=== PATIENT | male | born 1950 | race Caucasian/White ===

== ENCOUNTER 2019-04-26 13:02 | Emergency (ER) | payer MEDICARE, BC ==
--- NOTE | 2019-04-26 13:56 | EDM.PDOC ---
ED HPI GENERAL MEDICAL PROBLEM - General Chief Complaint: Bite:Animal, Insect Stated Complaint: TICK BITE Time Seen by Provider: 04/26/19 14:12 Source of Information: Reports: Patient History Limitations: Reports: No Limitations - History of Present Illness INITIAL COMMENTS - FREE TEXT/NARRATIVE: 68 years old male patient presented to the ER with a chief complaint of having a would tick stuck to his abdominal wall. He think is has been there for almost 2 or 3 weeks. He thought it's a growing mole and today he realized that it moves and his told him that it is a would tick. No other complaint. Denies any headache or visual changes. Denies any fever. Denies any chest pain shortness breath. Denies any cough. Denies any abdominal pain diarrhea or constipation. Urinary symptom. - Related Data Allergies Allergy/AdvReac Type Severity Reaction Status Date / Time honey Allergy Swelling Verified 04/26/19 13:48 Home Meds: Home Meds Albuterol [Proventil HFA] 2 puff INH Q4H PRN 04/26/19 [History] Diltiazem HCl [Dilt-Xr] 240 mg PO DAILY 04/26/19 [History] Fluticasone Propionate [Flonase] 2 spray TATYANA DAILY 04/26/19 [History] Fluticasone/Salmeterol [Advair 250-50 Diskus] 1 each IH DAILY 04/26/19 [History] Losartan Potassium 50 mg PO DAILY 04/26/19 [History] atorvaSTATin [Lipitor] 20 mg PO BEDTIME 04/26/19 [History] hydroCHLOROthiazide [Hydrochlorothiazide] 12.5 mg PO DAILY 04/26/19 [History] traMADol HCl [Tramadol HCl] 50 mg PO TID PRN 04/26/19 [History] Social & Family History - Tobacco Use Smoking Status *Q: Never Smoker - Caffeine Use Caffeine Use: Reports: Coffee - Alcohol Use Days Per Week of Alcohol Use: 7 Number of Drinks Per Day: 1 Total Drinks Per Week: 7 - Recreational Drug Use Recreational Drug Use: No ED ROS GENERAL - Review of Systems Review Of Systems: ROS reveals no pertinent complaints other than HPI. ED EXAM, ANIMAL BITE - Physical Exam Exam: See Below Exam Limited By: No Limitations General Appearance: Alert, No Apparent Distress Ears: Normal External Exam Head: Atraumatic, Normocephalic. No: Facial Swelling Neck: Normal Inspection, Supple. No: Lymphadenopathy (R), Lymphadenopathy (L) Respiratory/Chest: No Respiratory Distress, Lungs Clear, Normal Breath Sounds, Chest Non-Tender Cardiovascular: Normal Peripheral Pulses, Regular Rate, Rhythm, No Edema. No: Bradycardia, Tachycardia GI/Abdominal: Normal Bowel Sounds, Soft, Non-Tender, No Organomegaly, No Distention, No Mass, Other (wood tic stuck to his anterior abdominal wall) Extremities: Normal Inspection Neurological: Alert, Oriented, CN II-XII Intact, Normal Cognition, Normal Gait, No Motor/Sensory Deficits Course - Vital Signs Last Recorded V/S: Last Vital Signs Temp 35.6 C 04/26/19 13:52 Pulse 73 04/26/19 13:52 Resp 16 04/26/19 13:52 BP 133/76 04/26/19 13:52 Pulse Ox 100 04/26/19 13:52 - Re-Assessments/Exams Free Text/Narrative Re-Assessment/Exam: 04/26/19 14:08 Patient was seen and examined shortly after arrival. Stable. Would tick was removed with forceps. Topical bacitracin applied. Advised to follow up closely with his primary doctor. Come back for any concern or any worsening symptom. Patient agrees with the plan. Stable for discharge. Departure - Departure Time of Disposition: 14:10 Disposition: Home, Self-Care 01 Condition: Good Clinical Impression: Tick bite of abdominal wall - Discharge Information Instructions: Tick Bite Information, Adult, [id number] Referrals: PCP,None [Primary Care Provider] - Forms: ED Department Discharge - Assessment/Plan Plan: Close follow-up with PCP as needed Topical bacitracin Come back if symptom worsen
== END 2019-04-26 14:17 | disposition home or self-care (01) ==
LOC: JP.ED 13:02
DX: S30.861A Insect bite (nonvenomous) of abdominal wall, initial encounter (principal); Z91.018 Allergy to other foods; Z79.899 Other long term (current) drug therapy; W57.XXXA Bitten or stung by nonvenomous insect and other nonvenomous arthropods, initial encounter
CPT/HCPCS: 99282; 99283